=== PATIENT | female | born 1965 | race American Indian/Alaskan Native ===

== ENCOUNTER 2019-02-16 16:07 | Emergency (ER) | payer SELFPAY ==
--- NOTE | 2019-02-16 16:09 | Event Note ---
ED Screening Note ED Screening Note: pt missed a step and fell rolled her r ankle This initial assessment/diagnostic orders/clinical plan/treatment(s) is/are subject to change based on patients health status, clinical progression and re- assessment by fellow clinical providers in the ED. Further treatment and workup at subsequent clinical providers discretion. Patient/guardian urged not to elope from the ED as their condition may be serious if not clinically assessed and managed. Initial orders include: xray
[2019-02-16 16:13] VITALS: BP 138/100
[2019-02-16] MEDS ORDERED: IBUPROFEN PO ONE (16:31)
--- NOTE | 2019-02-16 16:46 | XRay Report ---
Right ankle, 2 views INDICATION: Pain following fall today FINDINGS: There is extensive soft tissue swelling adjacent to the lateral malleolus but there is no d efinite fracture or dislocation seen. Signer Name: Dylan Ridley MD Signed: 02/16/2019 4:42 PM Workstation Name: [id number]
[2019-02-16] MEDS ORDERED: PERCOCET 5/325 PO ONE (18:05)
--- NOTE | 2019-02-16 19:11 | Emergency Department Report ---
ED Lower Extremity HPI - General Chief Complaint: Extremity Injury, Lower Stated Complaint: (R) ANKLE PAIN Time Seen by Provider: 02/16/19 16:08 Source: patient Mode of arrival: Ambulatory Limitations: No Limitations - History of Present Illness Initial Comments: 53-year-old -[place] female with past medical history of hypertension. His metabolic complaining of pain and swelling to the right ankle and foot which occurred that she missed step, tripped and fell down a few steps. She reports no head trauma, loss of consciousness, no headache, no fever chills no back pain, no hip pain, no knee pain. She reports swelling and pain to the right ankle and pain is worse with palpation and range of motion and standing. Reports no prior injury. No numbness or tingling. MD Complaint: ankle injury -: Gradual - Related Data Previous Rx's Medication Instructions Recorded Last Taken Type Acetaminophen/Codeine 1 tab PO Q6H PRN #14 tab 06/18/14 Unknown Rx [Acetaminophen-Codeine #3 TAB] Clindamycin [Cleocin] 300 mg PO Q8H 7 Days cap 06/18/14 Unknown Rx Ondansetron [Zofran Odt] 4 mg PO ONCE #14 tab.rapdis 06/18/14 Unknown Rx Ketorolac [Toradol] 10 mg PO Q6H PRN #30 tablet 02/16/19 Unknown Rx hydroCHLOROthiazide [Hctz] 12.5 mg PO QDAY #30 capsule 02/16/19 Unknown Rx Allergies Allergy/AdvReac Type Severity Reaction Status Date / Time Penicillins Allergy Angioedema Verified 06/17/14 22:42 ED Review of Systems ROS: Stated complaint: (R) ANKLE PAIN Other details as noted in HPI Comment: All other systems reviewed and negative ED Past Medical Hx - Past Medical History Previous Medical History?: Yes Hx Asthma: Yes - Surgical History Past Surgical History?: Yes Additional Surgical History: abd hernia repair - Social History Smoking Status: Never Smoker Substance Use Type: None - Medications Home Medications: Home Medications Medication Instructions Recorded Confirmed Last Taken Type Acetaminophen/Codeine 1 tab PO Q6H PRN #14 tab 06/18/14 Unknown Rx [Acetaminophen-Codeine #3 TAB] Clindamycin [Cleocin] 300 mg PO Q8H 7 Days cap 06/18/14 Unknown Rx Ondansetron [Zofran Odt] 4 mg PO ONCE #14 tab.rapdis 06/18/14 Unknown Rx Ketorolac [Toradol] 10 mg PO Q6H PRN #30 tablet 02/16/19 Unknown Rx hydroCHLOROthiazide [Hctz] 12.5 mg PO QDAY #30 capsule 02/16/19 Unknown Rx ED Physical Exam - General Limitations: No Limitations General appearance: alert, in no apparent distress - Head Head exam: Present: atraumatic, normocephalic - Eye Eye exam: Present: normal appearance, PERRL, EOMI Pupils: Present: normal accommodation - ENT ENT exam: Present: normal exam, normal orophraynx, mucous membranes moist, TM's normal bilaterally - Neck Neck exam: Present: normal inspection, full ROM - Respiratory Respiratory exam: Present: normal lung sounds bilaterally. Absent: respiratory distress, wheezes, rales - Cardiovascular Cardiovascular Exam: Present: regular rate, normal rhythm. Absent: bradycardia, tachycardia, systolic murmur, diastolic murmur, rubs, gallop - GI/Abdominal GI/Abdominal exam: Present: soft, normal bowel sounds. Absent: distended, tenderness, hyperactive bowel sounds, hypoactive bowel sounds - Extremities Exam Extremities exam: Present: normal inspection, tenderness, normal capillary refill, joint swelling (prednisone, Lopressor E Bailey), other (Jesi the lateral malleolus with palpation. No tenderness to the proximal aspect of the fifth metatarsal. No tenderness to the proximal aspect of the tibia or fibula). Absent: full ROM - Back Exam Back exam: Present: normal inspection, full ROM. Absent: CVA tenderness (R), CVA tenderness (L) - Neurological Exam Neurological exam: Present: alert, oriented X3, CN II-XII intact (wall) - Psychiatric Psychiatric exam: Present: normal affect, normal mood - Skin Skin exam: Present: warm, dry, intact, normal color. Absent: rash ED Course Vital Signs 02/16/19 16:12 Temperature 98.6 F Pulse Rate 74 Respiratory 20 Rate Blood Pressure 138/100 [Right] O2 Sat by Pulse 99 Oximetry ED Lower Extremity MDM - Medical Decision Making 53-year-old -[place] female with a normal x-ray suggested a ankle sprain. Elevated blood blood pressure out of her hydrochlorothiazide. She will be discharged with crutches and a in a stirrup ankle brace and advised follow- up with orthopedics for further evaluation. Treatment recommendations and ankle recheck. Critical care attestation.: If time is entered above; I have spent that time in minutes in the direct care of this critically ill patient, excluding procedure time. ED Disposition Clinical Impression: High ankle sprain Disposition: [id number] TO HOME OR SELFCARE Is pt being admited?: No Does the pt Need Aspirin: No Condition: Stable Instructions: Ankle Sprain (ED), Ankle Stirrup Splint (ED), Crutch Instructions (ED) Prescriptions: hydroCHLOROthiazide [Hctz] 12.5 mg PO QDAY #30 capsule Ketorolac [Toradol] 10 mg PO Q6H PRN #30 tablet PRN Reason: Pain Referrals: PRIMARY CARE, [Primary Care Provider] - 3-5 Days CHUCHO OLIVIA MD [Staff Physician] - 3-5 Days
== END 2019-02-16 19:53 | disposition home or self-care (01) ==
LOC: ED 16:07
DX: S93.401A Sprain of unspecified ligament of right ankle, initial encounter (principal); I10 Essential (primary) hypertension; J45.909 Unspecified asthma, uncomplicated; Z88.0 Allergy status to penicillin; Z79.899 Other long term (current) drug therapy; W10.8XXA Fall (on) (from) other stairs and steps, initial encounter; Y93.89 Activity, other specified; Y92.89 Other specified places as the place of occurrence of the external cause; Y99.8 Other external cause status